=== PATIENT | male | born 1990 | race African-American/Black ===

== ENCOUNTER 2019-05-08 16:25 | Emergency (ER) | payer MEDICAID ==
[~2019-05-08] VITALS: Ht 180.3 cm; Wt 82.0 kg
[2019-05-08] MEDS ORDERED: HYDROCODONE/ACETAMINOPHEN 10/325MG TABLET PO ONE (18:45)
[2019-05-08] MEDS ORDERED: IBUPROFEN 800MG TABLET PO ONE (18:45)
[2019-05-08 21:01] VITALS: BP 116/71
== END 2019-05-08 21:15 | disposition home or self-care (01) ==
LOC: ER 16:25
DX: S09.8XXA Other specified injuries of head, initial encounter (principal); S39.012A Strain of muscle, fascia and tendon of lower back, initial encounter; S16.1XXA Strain of muscle, fascia and tendon at neck level, initial encounter; V13.4XXA Pedal cycle driver injured in collision with car, pick-up truck or van in traffic accident, initial encounter; Y93.89 Activity, other specified; Y92.488 Other paved roadways as the place of occurrence of the external cause
CPT/HCPCS: 71045; 72100; 99284

== ENCOUNTER 2022-07-07 08:53 | Emergency (ER) | payer MEDICAID ==
[~2022-07-07] VITALS: Ht 175.3 cm; Wt 75.0 kg
[2022-07-07 09:07] VITALS: BP 121/92
[2022-07-07 10:47] LABS: BASOPHILS % 1.1 % (0.0-2.0); EOSINOPHILS % 2.1 % (0.0-5.0); HEMATOCRIT. 45.2 % (42.0-52.0); HEMOGLOBIN. 15.7 g/dL (14.0-18.0); LYMPHOCYTES % 25.8 % (20.0-50.0); MEAN CORPUSCULAR HEMOGLOBIN 28.3 pg (28.0-32.0); MEAN CORPUSCULAR VOLUME 81.4 fL (80.0-94.0); MEAN PLATELET VOLUME 10.4 fl (7.4-10.4); MONOCYTES % 12.9 % (2.0-8.0); NEUTROPHILS % 58.1 % (40.0-76.0); PLATELET 132 x1000/uL (130-400); RED BLOOD CELL COUNT 5.56 mill/uL (4.7-6.1); RED CELL DISTRIBUTION WIDTH 14.2 % (11.6-14.6)
[2022-07-07 10:57] LABS: CLARITY URINE CLOUDY (CLEAR); COLOR URINE DARK YELLOW (YELLOW); KETONES URINE 1+ (NEGATIVE); LEUKOCYTE ESTERASE URINE TRACE (NEGATIVE); NITRITE URINE NEGATIVE (NEGATIVE); OCCULT BLOOD URINE NEGATIVE (NEGATIVE); PH URINE 5.5 (4.5-8.0); PROTEIN URINE 1+ (NEGATIVE); SPECIFIC GRAVITY URINE 1.034 (1.005-1.030)
[2022-07-07 11:25] LABS: CHLORIDE 104 mEq/L (98-107)
[2022-07-07 11:52] LABS: *AMPHETAMINES SCREEN URINE NEGATIVE (NEGATIVE); *BARBITURATES SCREEN URINE NEGATIVE (NEGATIVE); *BENZODIAZEPINES SCREEN URINE NEGATIVE (NEGATIVE); *COCAINE SCREEN URINE NEGATIVE (NEGATIVE); CANNABINOID URINE SCREEN NEGATIVE (NEGATIVE); METHADONE URINE SCREEN NEGATIVE (NEGATIVE); OPIATES URINE SCREEN NEGATIVE (NEGATIVE); PHENCYCLIDINE URINE SCREEN NEGATIVE (NEGATIVE)
[2022-07-07] MEDS ORDERED: CEFTRIAXONE SODIUM 500 MG/VIAL IM ONE (12:30)
[2022-07-07] MEDS ORDERED: LIDOCAINE HCL 1% 20ML VIAL (Pyxis) INJ INFIL ONE (12:30)
[2022-07-07] MEDS ORDERED: DOXY-326 MT (12:31)
[2022-07-09 08:08] LABS: HIV SCREEN 4G Non Reactive (Non Reactive)
== END 2022-07-07 13:00 | disposition home or self-care (01) ==
LOC: ER 09:23
DX: Z20.2 Contact with and (suspected) exposure to infections with a predominantly sexual mode of transmission (principal)
CPT/HCPCS: 36415; 80053; 80305; 81003; 85025; 86592; 87389; 99283

== ENCOUNTER 2025-05-21 13:44 | Emergency (ER) | payer MEDICAID, OTHER ==
[~2025-05-21] VITALS: Ht 180.3 cm; Wt 122.5 kg
[~2025-05-21 13:44] MED LIST: DOXY-461 MT
[2025-05-21 13:49] VITALS: O2SAT 98
[2025-05-21] MEDS: SODIUM CHLORIDE 0.9% 1,000 ML IV ONE (14:15)
[2025-05-21 15:12] LABS: BASOPHILS % 0.5 % (0.0-2.0); EOSINOPHILS % 5.4 % (0.0-5.0); HEMATOCRIT. 47.3 % (42.0-52.0); HEMOGLOBIN. 16.0 g/dL (14.0-18.0); LYMPHOCYTES % 33.0 % (20.0-50.0); MEAN PLATELET VOLUME 10.6 fl (7.4-10.4); MONOCYTES % 10.7 % (2.0-8.0); NEUTROPHILS % 50.4 % (40.0-76.0); PLATELET 158 x1000/uL (130-400); RED BLOOD CELL COUNT 5.79 mill/uL (4.7-6.1); RED CELL DISTRIBUTION WIDTH 14.3 % (11.6-14.6)
[2025-05-21 15:17] LABS: INR 1.0
[2025-05-21 15:21] LABS: CREATININE 1.4 mg/dL (0.6-1.3)
[2025-05-21 15:22] LABS: UREA NITROGEN BLOOD 7 mg/dL (9-23)
[2025-05-21 15:23] LABS: ASPARTATE AMINOTRANSFERASE 19 IU/L (<34)
[2025-05-21 15:24] LABS: BILIRUBIN DIRECT 0.2 mg/dL (<=3.0); BILIRUBIN TOTAL 0.5 mg/dL (0.1-1.0); PROTEIN TOTAL 7.2 g/dL (6.0-8.3)
[2025-05-21] MEDS: ONDANSETRON HCL 4MG/2ML INJ IV ONE (15:31)
[2025-05-21 16:26] VITALS: BP 128/84; PULSE 61; RESP 18; TEMP 36.7; O2SAT 99
[2025-05-21] MEDS ORDERED: IOHEXOL-300 100 ML BOTTLE ONE (20:19)
== END 2025-05-21 17:07 | disposition home or self-care (01) ==
LOC: ER 13:44 → CANBEDREQ 16:36 → ER 17:07
DX: R10.32 Left lower quadrant pain (principal); K92.2 Gastrointestinal hemorrhage, unspecified; Z55.6 Problems related to health literacy; Z75.3 Unavailability and inaccessibility of health-care facilities
CPT/HCPCS: 99285; 74177; 96374; 96361; 80076; 80048; 83690; 85025; 85610; 36415; Q9967; J2405; J7030